=== PATIENT | male | born 1940 | race Caucasian/White ===

== ENCOUNTER → 2016-12-27 | Outpatient (REF) | payer OTHER | LOC: M LABDRAW1 13:40 | PROVIDERS: ATTEND Internal Medicine Endocrinology, Diabetes & Metabolism | DX: E11.65 Type 2 diabetes mellitus with hyperglycemia (principal) ==

== ENCOUNTER 2019-01-28 13:00 | Inpatient (IN) | payer MEDICARE, OTHER ==
[~2019-01-28] VITALS: Ht 177.8 cm; Wt 61.2 kg
[2019-01-28] MEDS ORDERED: SIMV10TA2 PO (13:27)
[2019-01-28] MEDS ORDERED: [UNRECOGNIZED DRUG - OTHER] (13:29)
[2019-01-28] MEDS ORDERED: QUIN1TAB3 PO (13:29)
[2019-01-28] MEDS ORDERED: METF500T13 PO (13:29)
[2019-01-28] MEDS ORDERED: EQL400CA9 PO (13:29)
[2019-01-28] MEDS ORDERED: CHLO125TA PO (13:30)
[2019-01-28] MEDS ORDERED: ASPI81TA85 PO (13:31)
[2019-01-28] MEDS ORDERED: INSULIN (13:31)
[2019-01-28 14:44] LABS: BASO % 0.5 % (0.0-1.0); EOS % 0.6 % (0.0-3.0); HEMATOCRIT 34.8 % (42.0-52.0); HEMOGLOBIN 12.7 g/dl (13.5-17.5); LYMPH # 0.7 10^3/uL (1.5-5.0); LYMPH % 9.8 % (24.0-44.0); MEAN CORPUSCULAR HEMOGLOBIN 32.2 pg (27.0-33.0); MEAN CORPUSCULAR HGB CONC 36.5 g/dl (32.0-36.5); MEAN CORPUSCULAR VOLUME 88.1 fl (80.0-96.0); MONO # 0.7 10^3/uL (0.0-0.8); MONO % 9.8 % (0.0-5.0); NEUTROPHILS # 5.3 10^3/uL (1.5-8.5); PLATELET COUNT, AUTOMATED 299 10^3/uL (150-450); RED BLOOD COUNT 3.95 10^6/uL (4.30-6.10); WHITE BLOOD COUNT 6.7 10^3/uL (4.0-10.0)
[2019-01-28 15:04] LABS: ALBUMIN 3.8 GM/DL (3.2-5.2); ALT/SGPT 26 U/L (12-78); BILIRUBIN,DIRECT 0.2 MG/DL (0.0-0.2); BILIRUBIN,TOTAL 0.7 MG/DL (0.2-1.0); BLOOD UREA NITROGEN 22 MG/DL (7-18); CALCIUM LEVEL 9.1 MG/DL (8.8-10.2); CARBON DIOXIDE LEVEL 30 MEQ/L (21-32); CHLORIDE LEVEL 88 MEQ/L (98-107); CK-MB VALUE MASS 2.4 NG/ML (<3.6); CPK CREATINE PHOSPHOKINASE 168 U/L (39-308); CREATININE FOR GFR 0.96 MG/DL (0.70-1.30); GLOMERULAR FILTRATION RATE > 60.0 (>42); GLUCOSE, FASTING 226 MG/DL (70-100); MB/CK RELATIVE INDEX 1.43 (< OR =4); POTASSIUM SERUM 3.2 MEQ/L (3.5-5.1); SODIUM LEVEL 127 MEQ/L (136-145); TOTAL PROTEIN 7.2 GM/DL (6.4-8.2); TROPONIN I 0.02 NG/ML (< 0.10)
--- NOTE | 2019-01-28 15:12 | REP ---
CT brain without contrast: History: Altered mental status. No comparison study. Findings: Preliminary digital curling machine operator radiograph demonstrates that the patient is edentulous. Bone window settings demonstrate an intact bony calvarium. There is heavy vascular calcification in the distal carotid arteries. Visualized paranasal sinuses are clear. No intraorbital abnormality is seen. No scalp lesion is observed. There is no evidence of intracranial hemorrhage. There is moderate generalized volume loss. There is no evidence of infarct, hemorrhage, mass, or extra-axial fluid collection. Impression: Generalized volume loss. Vascular calcification. Otherwise negative. Electronically Signed by Jose Franco MD 01/28/2019 04:54 P
[2019-01-28] MEDS ORDERED: POTASSIUM CHLORIDE 10 MEQ SR TABLET PO ONE (15:45)
[2019-01-28] MEDS ORDERED: DOXYCYCLINE HYCLATE 100 MG TAB PO ONE (16:30)
[2019-01-28] MEDS ORDERED: BASA100I SC (16:38)
[2019-01-28] MEDS ORDERED: NOVOINJ3 SQ (16:38)
[2019-01-28] MEDS ORDERED: METF-791 PO (16:38)
[2019-01-28] MEDS ORDERED: CHOL100029 PO (16:38)
[2019-01-28] MEDS ORDERED: DEXTROSE 50% 50 ML SYRINGE IV PRN (16:45)
[2019-01-28] MEDS ORDERED: GLUCAGON FOR INJ 1 MG VIAL (J1610) SC PRN (16:45)
[2019-01-28] MEDS ORDERED: GLUCOSE 4 GM CHEW TABLET PO PRN (16:45)
--- NOTE | 2019-01-28 17:14 | HPEPDOC ---
General Date of Admission 01/28/19 Date of Service: Jan 28, 2019 Chief Complaint The patient is a 78-year-old male admitted with a reason for visit of [facility]. History of Present Illness Patient is 78 years old male with past medical history of hypertension, diabetes type 2 presented hospital with history of confusion. Family presented in the room with patient and provided most of the history. According to them, for past 2 months patient has been increasingly forgetful, confused, he has been having problem with short-term memory. Family stated that 2 days ago they removed tick from his right eyelid, another tick was removed from the left eyelid 2 weeks ago. However, family stated that [place], and possible he got few tick bites for past few months. Patient was not compliant to his blood pressure and diabetes medications because of forgetfulness. On the admission blood pressure was elevated with systolic 170 , CT head was negative, CBC unremarkable, patient was found to have low sodium level of 127. Troponin was negative, EKG showed sinus rhythm. Chest x-ray was negative for acute cardiopulmonary diseases. Home Medications Scheduled Aspirin (Aspir 81) 81 Mg Tablet.dr, 81 MG PO DAILY, (Reported) Chlorthalidone (Chlorthalidone) 25 Mg Tablet, 25 MG PO DAILY, (Reported) Insulin Aspart (Novolog Flexpen) 100 Unit/1 Ml Insuln.pen, 1 DOSE SQ ACHS, (Rep orted) PER SLIDING SCALE Insulin Glargine,Hum.rec.anlog (Basaglar Kwikpen U-100) 100 Unit/1 Ml Insuln.pen, 15 UNIT SC QHS, (Reported) Metformin HCl (Metformin HCl ER) 500 Mg Tab.er.24h, 1,000 MG PO BID, (Reported) Quinapril Hcl (Quinapril HCl) 20 Mg Tablet, 20 MG PO DAILY, (Reported) Simvastatin (Simvastatin) 10 Mg Tablet, 10 MG PO QPM, (Reported) Vitamin D (Vitamin D3) 1,000 Unit Tablet, 1,000 UNITS PO DAILY, (Reported) Allergies Coded Allergies: No Known Allergies (Unverified , 01/28/19) Past Medical History Medical History Diabetes type 2 Hypertension Family History I reviewed family history and it's not pertinent Social History * Smoker: Denies, former Smoker Alcohol: Denies Drugs: denies A-FIB/CHADSVASC A-FIB History Current/History of A-Fib/PAF?: No Current PO Anticoag Therapy: No Review of Systems Constitutional: Denies: Chills, Fever Eyes: Denies: Pain, Vision change ENT: Denies: Head Aches, Ear Pain Skin: Denies: Rash, Lesions Pulmonary: Denies: Dyspnea, Cough Cardiovascular: Denies: Chest Pain, Palpitations Gastrointestinal: Denies: Nausea, Vomiting Genitourinary: Denies: Dysuria, Frequency Hematologic: Denies: Bruising, Bleeding Excessively Endocrine: Denies: Polydipsia, Polyphagia Musculoskeletal: Denies: Neck Pain, Back Pain Neurological: Reports: Confusion; Denies: Weakness Psych: Reports: Anxiety Physical Examination General Exam: Positive: Alert, Cooperative Eye Exam: Positive: PERRLA, Conjunctiva & lids normal ENT Exam: Positive: Atraumatic, Mucous membr. moist/pink Neck Exam: Positive: Supple; Negative: JVD Chest Exam: Positive: Clear to auscultation Heart Exam: Positive: Rate Normal Telemetry: Positive: No significant arrhythmia, Sinus Abdomen Exam: Positive: Normal bowel sounds Extremity Exam: Negative: Clubbing, Cyanosis Skin Exam: Positive: Nl turgor and temperature, Breakdown (small subcutaneous hemorrhage on the right eyelid after tick removal) Neuro Exam: Positive: Strength at 5/5 X4 ext, Cranial Nerves 3-12 NL Psych Exam: Positive: Other (patient oriented in place, in time) Vital Signs Vital Signs Date Time Temp Pulse Resp B/P (MAP) Pulse Ox O2 Delivery O2 Flow Rate FiO2 01/28/19 15:15 94 18 100 Room Air 01/28/19 13:43 98.3 01/28/19 13:40 172/78 (109) Laboratory Data Labs 24H Laboratory Tests 2 01/28/19 14:04: Urine Color YELLOW, Urine Appearance CLEAR, Urine pH 6.0, Urine Specific [place] 1.014, Urine Protein NEGATIVE, Urine Glucose (UA) 3+H, Urine Ketones 1+H, Urine Blood NEGATIVE, Urine Nitrite NEGATIVE, Urine Bilirubin NEGATIVE, Urine Urobilinogen 0.2, Urine Leukocyte Esterase NEGATIVE, Urine WBC (Auto) 1, Urine RBC (Auto) 5H, Urine Hyaline Casts (Auto) 0, Urine Bacteria (Auto) NEGATIVE, Urine Squamous Epithelial Cells 0, Urine Mucus (Auto) SMALL, Urine Sperm (Auto) 01/28/19 14:10: Immature Granulocyte % (Auto) 0.3, White Blood Count 6.7, Red Blood Count 3.95L, Hemoglobin 12.7L, Hematocrit 34.8L, Mean Corpuscular Volume 88.1, Mean Corpuscular Hemoglobin 32.2, Mean Corpuscular Hemoglobin Concent 36.5, Red Cell Distribution Width 12.5, Platelet Count 299, Neutrophils (%) (Auto) 79.0H, Lymphocytes (%) (Auto) 9.8L, Monocytes (%) (Auto) 9.8H, Eosinophils (%) (Auto) 0.6, Basophils (%) (Auto) 0.5, Neutrophils # (Auto) 5.3, Lymphocytes # (Auto) 0.7L, Monocytes # (Auto) 0.7, Eosinophils # (Auto) 0.0, Basophils # (Auto) 0.0, Nucleated Red Blood Cells % (auto) 0.0, Anion Gap 9, Glomerular Filtration Rate > 60.0, Calcium Level 9.1, Aspartate Amino Transf (AST/SGOT) 24, Alanine Aminotransferase (ALT/SGPT) 26, Alkaline Phosphatase 87, Total Bilirubin 0.7, Direct Bilirubin 0.2, Ammonia < 10, Total Creatine Kinase 168, Creatine Kinase MB 2.4, Creatine Kinase MB Relative Index 1.43, Troponin I 0.02, Total Protein 7.2, Albumin 3.8, Albumin/Globulin Ratio 1.12, Thyroid Stimulating Hormone (TSH) 0.750 01/28/19 14:11: CBC/BMP Laboratory Tests 01/28/19 14:10 Red Blood Count 3.95 L, Mean Corpuscular Volume 88.1, Mean Corpuscular Hemoglobin 32.2, Mean Corpuscular Hemoglobin Concent 36.5, Red Cell Distribution Width 12.5, Neutrophils (%) (Auto) 79.0 H, Lymphocytes (%) (Auto) 9.8 L, Monocytes (%) (Auto) 9.8 H, Eosinophils (%) (Auto) 0.6, Basophils (%) (Auto) 0.5, Neutrophils # (Auto) 5.3, Lymphocytes # (Auto) 0.7 L, Monocytes # (Auto) 0.7, Eosinophils # (Auto) 0.0, Basophils # (Auto) 0.0 Assessment/Plan Patient is 78 years old male with past medical history of hypertension, diabetes type 2 presented hospital with history of confusion. Family presented in the room with patient and provided most of the history. According to them, for past 2 months patient has been increasingly forgetful, confused, he has been having problem with short-term memory Problems (1) Altered mental status Status: Acute Problem Text: Unclear etiology for now Differential diagnosis includes dementia, hypertensive encephalopathy given noncompliance to his medication, Lyme diseases, previous lacunar stroke Will check Lyme titer. I will start empirically doxycycline Patient took metformin, I will order MRI of the brain tomorrow Will check Doppler ultrasound of the carotids (2) Hyponatremia Status: Acute Problem Text: Unclear etiology for now Will check urine lites, serum osmolarity, urine osmolarity Fluid restriction for now Will check sodium level every 4 hours The goal for correction 6-8 mEq for next 24 hours (3) Diabetes mellitus Problem Text: Diabetes diet, stop metformin Insulin sliding scale Detemir 10 units daily at bedtime (4) Hypertension Problem Text: Continue home antihypertensive medication Plan / VTE VTE Prophylaxis Ordered?: Yes CORINE WHATLEY DO Jan 28, 2019 17:14
[2019-01-28] MEDS: HumaLOG INSULIN (NovoLOG) PER UNIT SC SCH (17:37)
[2019-01-28 18:15] VITALS: BP 170/63
[2019-01-28] MEDS: SIMVASTATIN 10 MG TAB PO SCH (20:18)
[2019-01-28] MEDS: HEPARIN SOD (PORCINE) 5000 UNITS/ML VIAL SC SCH (20:19)
[2019-01-28] MEDS: QUINAPRIL 20 MG TAB PO SCH (20:19)
--- NOTE | 2019-01-28 20:41 | ECGEPIP ---
[facility] - ED Test Date: 2019-01-28 Pat Name: KETURAH SNOW Department: Room: [place] [address] Gender: Male Atmospheric Technician: jose juan : 1940 Requested By: LUKE Vazquez Order Number: [id number] Reading MD: Amado Simmons Measurements Intervals [place] Rate: 86 P: 89 MA: 197 QRS: 48 QRSD: 94 T: 68 QT: 361 QTc: 434 Interpretive Statements SINUS RHYTHM SEPTAL MYOCARDIAL INFARCTION, OF INDETERMINATE AGE NO PRIORS FOR COMPARISON Electronically Signed on 01-28-2019 20:41:33 EDT by Amado Simmons
[2019-01-28 22:00] VITALS: BP 126/64
[2019-01-28] MEDS: LEVEMIR (INSULIN DETEMIR) 1 UNITS/0.01ML SC SCH (23:00)
[2019-01-29 06:00] VITALS: BP 102/64
[2019-01-29 06:03] LABS: HEMATOCRIT 31.5 % (42.0-52.0); HEMOGLOBIN 11.2 g/dl (13.5-17.5); MEAN CORPUSCULAR HEMOGLOBIN 30.9 pg (27.0-33.0); MEAN CORPUSCULAR HGB CONC 35.6 g/dl (32.0-36.5); MEAN CORPUSCULAR VOLUME 86.8 fl (80.0-96.0); PLATELET COUNT, AUTOMATED 279 10^3/uL (150-450); RED BLOOD COUNT 3.63 10^6/uL (4.30-6.10)
[2019-01-29 06:21] LABS: BLOOD UREA NITROGEN 20 MG/DL (7-18); CALCIUM LEVEL 8.2 MG/DL (8.8-10.2); CARBON DIOXIDE LEVEL 31 MEQ/L (21-32); CHLORIDE LEVEL 93 MEQ/L (98-107); GLOMERULAR FILTRATION RATE > 60.0 (>42); GLUCOSE, FASTING 88 MG/DL (70-100); POTASSIUM SERUM 3.5 MEQ/L (3.5-5.1); SODIUM LEVEL 129 MEQ/L (136-145)
[2019-01-29] MEDS: HumaLOG INSULIN (NovoLOG) PER UNIT SC SCH ×3 (07:30→17:50)
[2019-01-29] MEDS ORDERED: POTASSIUM CHLORIDE 10 MEQ SR TABLET PO ONE (08:15)
[2019-01-29] MEDS: DOXYCYCLINE HYCLATE 100 MG TAB PO SCH ×2 (08:42→22:22)
[2019-01-29] MEDS: CHLORTHALIDONE 25 MG TAB PO SCH (08:42)
[2019-01-29] MEDS: ASPIRIN 81 MG ENTERIC TAB PO SCH (08:42)
[2019-01-29] MEDS: HEPARIN SOD (PORCINE) 5000 UNITS/ML VIAL SC SCH ×2 (08:42→22:23)
[2019-01-29] MEDS ORDERED: QUINAPRIL 20 MG TAB PO SCH (09:00)
[2019-01-29 09:01] LABS: ALBUMIN 3.2 GM/DL (3.2-5.2); ALT/SGPT 20 U/L (12-78); BILIRUBIN,DIRECT 0.2 MG/DL (0.0-0.2); BILIRUBIN,TOTAL 0.7 MG/DL (0.2-1.0)
--- NOTE | 2019-01-29 13:38 | REP ---
AP and lateral chest three views: There are two AP and single lateral views: There are no comparisons. The lung vigil are hyperinflated but clear. Cardiac size is normal. The huma and mediastinum are unremarkable. There is thoracic scoliosis convex right. 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 Impression: Hyperinflation, the lung vigil otherwise clear. Scoliosis. Right shoulder osteoarthritis. Electronically Signed by Theodore Vieira MD 01/29/2019 01:27 P
[2019-01-29 14:00] VITALS: BP 134/66
--- NOTE | 2019-01-29 14:33 | IPNPDOC ---
Text Note Date of Service The patient was seen on 01/29/19. NOTE Subjective: Patient mildly confused in the morning, he has a racing thoughts and is difficult for him to focus on one subject, I have frequently redirected him. Patient denies fever, chills, nausea, vomiting, shortness of breath, palpitations, dysuria, diarrhea Objective: General Exam: Positive: Alert, Cooperative Eye Exam: Positive: PERRLA, Conjunctiva & lids normal ENT Exam: Positive: Atraumatic, Mucous membr. moist/pink Neck Exam: Positive: Supple; Negative: JVD Chest Exam: Positive: Clear to auscultation Heart Exam: Positive: Rate Normal Telemetry: Positive: No significant arrhythmia, Sinus Abdomen Exam: Positive: Normal bowel sounds Extremity Exam: Negative: Clubbing, Cyanosis Skin Exam: Positive: Nl turgor and temperature, Breakdown (small subcutaneous hemorrhage on the right eyelid after tick removal) Neuro Exam: Positive: Strength at 5/5 X4 ext, Cranial Nerves 3-12 NL Patient is 78 years old male with past medical history of hypertension, diabetes type 2 presented hospital with confusion. For past 2 months patient has been increasingly forgetful, confused, he has been having problem with short-term memory. Family stated that 2 days ago they removed tick from his right eyelid, another tick was removed from the left eyelid 2 weeks ago. On the admission blood pressure was elevated with systolic 170 , CT head was negative, CBC unremarkable, patient was found to have low sodium level of 127. Troponin was negative, EKG showed sinus rhythm. Chest x-ray was negative for acute cardiopulmonary diseases. (1) Altered mental status Status: Acute Problem Text: Unclear etiology for now Differential diagnosis includes dementia, hypertensive encephalopathy given noncompliance to his medication, Lyme diseases, previous lacunar stroke Lyme titer pending. I started empirically doxycycline MRI of the brain Will check Doppler ultrasound of the carotids (2) Hyponatremia Status: Acute Sodium level continues to be 127. Problem Text: Unclear etiology for now urine lites, serum osmolarity, urine osmolarity pending Fluid restriction for now Will check sodium level every 4 hours The goal for correction 6-8 mEq for next 24 hours (3) Diabetes mellitus Problem Text: Diabetes diet, stop metformin Insulin sliding scale Detemir 10 units daily at bedtime I will check HbA1c (4) Hypertension Blood pressures under control Problem Text: Continue home antihypertensive medication VS,Fishbone, I+O VS, [place], I+O Laboratory Tests 01/28/19 19:33 01/28/19 22:41 01/29/19 02:30 01/29/19 05:36 Red Blood Count 3.63 L, Mean Corpuscular Volume 86.8, Mean Corpuscular Hemoglobin 30.9, Mean Corpuscular Hemoglobin Concent 35.6, Red Cell Distribution Width 12.4 01/29/19 10:44 Vital Signs Date Time Temp Pulse Resp B/P (MAP) Pulse Ox O2 Delivery O2 Flow Rate FiO2 01/29/19 06:00 98.0 84 19 102/64 (77) 97 01/28/19 16:45 Room Air I&O- Last 24 Hours up to 6 AM 01/29/19 06:00 Intake Total 100 ml Output Total 175 ml Balance -75 ml CORINE WHATLEY DO Jan 29, 2019 14:33
--- NOTE | 2019-01-29 17:18 | REP ---
CAROTID ULTRASOUND: Real-time ultrasound evaluation and duplex Doppler interrogation of the extracranial carotid vasculature is performed. There is mild plaquing and narrowing in both carotid bulbs extending into the internal and external carotid arteries. Luminal narrowing is less than 50%. There is no evidence of hemodynamically significant stenosis of either internal carotid artery. Normal flow velocities are seen. The vertebral arteries demonstrate normal direction of flow. RIGHT LEFT Peak systolic velocity ICA 100.8 cm/s 70.9 cm/s End diastolic velocity ICA 20.6 cm/s 17.9 cm/s Peak systolic velocity CCA 123 cm/s 93.7 cm/s Peak systolic velocity ECA 80.5 cm/s 70.5 cm/s ICA/CCA ratio 0.82 0.76 IMPRESSION: Bilateral luminal narrowing of the internal carotid arteries less than 50%. No evidence of hemodynamically significant stenosis. Electronically Signed by Theodore Dalal MD 01/29/2019 05:09 P
[2019-01-29 20:00] VITALS: BP 136/64
[2019-01-29] MEDS: SIMVASTATIN 10 MG TAB PO SCH (22:22)
[2019-01-29] MEDS: LEVEMIR (INSULIN DETEMIR) 1 UNITS/0.01ML SC SCH (22:23)
[2019-01-29] MEDS: QUINAPRIL 20 MG TAB PO SCH (22:24)
[2019-01-30 00:08] LABS: Lyme Disease IgG/IgM Antibodie <0.91 ISR (0.00-0.90); Lyme Disease IgM Ab Quantitati <0.80 index (0.00-0.79)
[2019-01-30 06:00] VITALS: BP 126/64
[2019-01-30 06:23] LABS: POTASSIUM SERUM 3.7 MEQ/L (3.5-5.1)
[2019-01-30] MEDS: HumaLOG INSULIN (NovoLOG) PER UNIT SC SCH ×3 (07:32→17:18)
[2019-01-30 07:47] LABS: HEMATOCRIT 31.2 % (42.0-52.0); HEMOGLOBIN 11.1 g/dl (13.5-17.5); MEAN CORPUSCULAR HEMOGLOBIN 31.7 pg (27.0-33.0); MEAN CORPUSCULAR HGB CONC 35.6 g/dl (32.0-36.5); MEAN CORPUSCULAR VOLUME 89.1 fl (80.0-96.0); PLATELET COUNT, AUTOMATED 264 10^3/uL (150-450); WHITE BLOOD COUNT 3.9 10^3/uL (4.0-10.0)
[2019-01-30 08:02] LABS: BLOOD UREA NITROGEN 23 MG/DL (7-18); CALCIUM LEVEL 8.6 MG/DL (8.8-10.2); CARBON DIOXIDE LEVEL 29 MEQ/L (21-32); CHLORIDE LEVEL 93 MEQ/L (98-107); CREATININE FOR GFR 0.92 MG/DL (0.70-1.30); GLOMERULAR FILTRATION RATE > 60.0 (>42); GLUCOSE, FASTING 213 MG/DL (70-100); SODIUM LEVEL 128 MEQ/L (136-145)
[2019-01-30] MEDS ORDERED: PROHANCE 279.3MG/ML 15ML VIAL (A9576) As Ordered ONE (08:37)
[2019-01-30] MEDS ORDERED: FLUBLOK(EGG FREE)(QUAD)INFLUENZA VACC 0.5ML SYRINGE (90682)18YRS&OLDER IM ONE (09:00)
[2019-01-30] MEDS ORDERED: PREVNAR 13 VACCINE SYRINGE (CPT CODE:90670) IM ONE (09:00)
[2019-01-30] MEDS ORDERED: LEVEMIR (INSULIN DETEMIR) 1 UNITS/0.01ML SC SCH (09:00)
[2019-01-30] MEDS: CHLORTHALIDONE 25 MG TAB PO SCH (10:08)
[2019-01-30] MEDS: ASPIRIN 81 MG ENTERIC TAB PO SCH (10:08)
[2019-01-30] MEDS: HEPARIN SOD (PORCINE) 5000 UNITS/ML VIAL SC SCH ×2 (10:09→21:54)
[2019-01-30] MEDS: DOXYCYCLINE HYCLATE 100 MG TAB PO SCH (10:09)
--- NOTE | 2019-01-30 10:17 | REP ---
MRI BRAIN WITHOUT AND WITH IV CONTRAST: HISTORY: Altered mental status. Progressive confusion. Comparison head CT study January 30, 2019. TECHNIQUE: Axial and sagittal imaging planes are utilized for T1- and T2-weighted scans. Sequences include spin-echo, fast spin echo, FLAIR, and diffusion weighted sequences. Gadolinium enhancement dose is 12 mL of intravenous ProHance. MRI FINDINGS: No bony calvarial lesion is seen. Craniocervical junction and upper cervical cord are normal in appearance. There is no MR evidence of paranasal sinus disease. No intraorbital abnormality is seen. There is generalized volume loss as seen on the CT study. Mild small vessel atherosclerotic changes are seen in the periventricular white matter of the supratentorial brain bilaterally. There is no evidence of intracranial hemorrhage or mass. Diffusion weighted scans show no evidence of restricted diffusion. No infarct or extra-axial fluid collection is seen. Postcontrast MR images show no abnormal intracranial enhancement. IMPRESSION: Generalized volume loss and small vessel changes. No acute intracranial abnormality. Electronically Signed by Jose Franco MD 01/30/2019 10:25 A
--- NOTE | 2019-01-30 12:17 | IPNPDOC ---
Text Note Date of Service The patient was seen on 01/30/19. NOTE Subjective: Patient continues to be mildly confused in the morning, he does not remember recent events. There is a question for confabulation. Patient denies fever, chills, nausea, vomiting, shortness of breath, palpitations, dysuria, diarrhea Objective: General Exam: Positive: Alert, Cooperative Eye Exam: Positive: PERRLA, Conjunctiva & lids normal ENT Exam: Positive: Atraumatic, Mucous membr. moist/pink Neck Exam: Positive: Supple; Negative: JVD Chest Exam: Positive: Clear to auscultation Heart Exam: Positive: Rate Normal Telemetry: Positive: No significant arrhythmia, Sinus Abdomen Exam: Positive: Normal bowel sounds Extremity Exam: Negative: Clubbing, Cyanosis Skin Exam: Positive: Nl turgor and temperature, Breakdown (small subcutaneous hemorrhage on the right eyelid after tick removal) Neuro Exam: Positive: Strength at 5/5 X4 ext, Cranial Nerves 3-12 NL MRI BRAIN WITHOUT AND WITH IV CONTRAST: HISTORY: Altered mental status. Progressive confusion. Comparison head CT study January 30, 2019. TECHNIQUE: Axial and sagittal imaging planes are utilized for T1- and T2-weighted scans. Sequences include spin-echo, fast spin echo, FLAIR, and diffusion weighted sequences. Gadolinium enhancement dose is 12 mL of intravenous ProHance. MRI FINDINGS: No bony calvarial lesion is seen. Craniocervical junction and upper cervical cord are normal in appearance. There is no MR evidence of paranasal sinus disease. No intraorbital abnormality is seen. There is generalized volume loss as seen on the CT study. Mild small vessel atherosclerotic changes are seen in the periventricular white matter of the supratentorial brain bilaterally. There is no evidence of intracranial hemorrhage or mass. Diffusion weighted scans show no evidence of restricted diffusion. No infarct or extra-axial fluid collection is seen. Postcontrast MR images show no abnormal intracranial enhancement. IMPRESSION: Generalized volume loss and small vessel changes. No acute intracranial abnormality. Electronically Signed by Jose Franco MD 01/30/2019 10:25 A DD: Jose Franco MD 01/30/19 0942 DT: MIGUEL 01/30/19 1016 DS: SHREYAS 01/30/19 1025 01/30/19 1025 Patient is 78 years old male with past medical history of hypertension, diabetes type 2 presented hospital with confusion. For past 2 months patient has been increasingly forgetful, confused, he has been having problem with short-term memory. Family stated that 2 days ago they removed tick from his right eyelid, another tick was removed from the left eyelid 2 weeks ago. On the admission blood pressure was elevated with systolic 170 , CT head was negative, CBC unremarkable, patient was found to have low sodium level of 127. Troponin was negative, EKG showed sinus rhythm. Chest x-ray was negative for acute cardiopulmonary diseases. (1) Altered mental status Status: Acute Problem Text: Unclear etiology for now Differential diagnosis included dementia, hypertensive encephalopathy given noncompliance to his medication, Lyme diseases, previous lacunar stroke Lyme titer negative including IgM. I discontinued doxycycline MRI of the brain showed generalized volume loss and small vessel changes. No acute intracranial abnormality. Doppler ultrasound of the carotids showed less than 50% carotid artery stenosis Neurologist consult EEG (2) Hyponatremia Status: Acute Sodium level improved Corrected sodium today is 130 (3) Diabetes mellitus Problem Text: Diabetes diet, stop metformin Insulin sliding scale Detemir 10 units daily at bedtime I added 10 units that in the morning HbA1c 9, indicates poor control diabetes (4) Hypertension Blood pressures under control Problem Text: Continue home antihypertensive medication VS,Fishbone, I+O VS, Fishbone, I+O Laboratory Tests 01/29/19 14:35 01/29/19 18:53 01/29/19 22:24 01/30/19 02:26 01/30/19 05:30 Red Blood Count 3.50 L, Mean Corpuscular Volume 89.1, Mean Corpuscular Hemoglobin 31.7, Mean Corpuscular Hemoglobin Concent 35.6, Red Cell Distribution Width 12.7, Calcium Level 8.6 L Vital Signs Date Time Temp Pulse Resp B/P (MAP) Pulse Ox O2 Delivery O2 Flow Rate FiO2 01/30/19 06:00 98.1 73 18 126/64 (84) 97 01/28/19 16:45 Room Air I&O- Last 24 Hours up to 6 AM 01/30/19 06:00 Intake Total 750 ml Output Total 1200 ml Balance -450 ml CORINE WHATLEY DO Jan 30, 2019 12:17
[2019-01-30] MEDS: LEVEMIR (INSULIN DETEMIR) 1 UNITS/0.01ML SC SCH ×2 (12:35→21:55)
[2019-01-30 14:00] VITALS: BP 130/60
[2019-01-30 21:54] VITALS: BP 128/70
[2019-01-30] MEDS: QUINAPRIL 20 MG TAB PO SCH (21:54)
[2019-01-30] MEDS: SIMVASTATIN 10 MG TAB PO SCH (21:54)
[2019-01-30 22:00] VITALS: BP 162/88
[2019-01-31 06:00] VITALS: BP 122/70
[2019-01-31 06:02] LABS: MEAN CORPUSCULAR HEMOGLOBIN 31.3 pg (27.0-33.0); MEAN CORPUSCULAR HGB CONC 35.5 g/dl (32.0-36.5); MEAN CORPUSCULAR VOLUME 88.3 fl (80.0-96.0); PLATELET COUNT, AUTOMATED 259 10^3/uL (150-450); RED BLOOD COUNT 3.51 10^6/uL (4.30-6.10); WHITE BLOOD COUNT 5.5 10^3/uL (4.0-10.0)
[2019-01-31 06:37] LABS: BLOOD UREA NITROGEN 25 MG/DL (7-18); CALCIUM LEVEL 8.4 MG/DL (8.8-10.2); CARBON DIOXIDE LEVEL 29 MEQ/L (21-32); CHLORIDE LEVEL 93 MEQ/L (98-107); CREATININE FOR GFR 0.82 MG/DL (0.70-1.30); GLOMERULAR FILTRATION RATE > 60.0 (>42); GLUCOSE, FASTING 180 MG/DL (70-100); MAGNESIUM LEVEL 1.9 MG/DL (1.8-2.4); POTASSIUM SERUM 3.6 MEQ/L (3.5-5.1); SODIUM LEVEL 130 MEQ/L (136-145); THYROGLOBULIN ANTIBODY 18.8 U/ML (<60.0); THYROID PEROXIDASE ANTIBODY < 28.0 U/ML (<60.0); VITAMIN B12 LEVEL > 2000 PG/ML (247-911)
[2019-01-31] MEDS: HumaLOG INSULIN (NovoLOG) PER UNIT SC SCH ×2 (07:52→11:45)
[2019-01-31] MEDS: ASPIRIN 81 MG ENTERIC TAB PO SCH (07:53)
[2019-01-31] MEDS: CHLORTHALIDONE 25 MG TAB PO SCH (07:53)
[2019-01-31] MEDS: LEVEMIR (INSULIN DETEMIR) 1 UNITS/0.01ML SC SCH (07:53)
[2019-01-31] MEDS: HEPARIN SOD (PORCINE) 5000 UNITS/ML VIAL SC SCH (07:53)
--- NOTE | 2019-01-31 15:24 | CR ---
DATE OF CONSULTATION: 01/30/2019 REFERRING PHYSICIAN: Dr. Reynaldo Thorne REASON FOR CONSULTATION: Altered mental status. HISTORY OF PRESENT ILLNESS: Moe Horne is a 78-year-old man with history of hypertension, diabetes who presented to [facility] due to confusion. The patient states that he lives alone but his children and grandchildren live nearby. He does his own cooking, shopping and driving. He states that he drove 40 miles on 02/07/2019. He went to [place] but had to come back due to traffic. It was too crowded for him. He drove back. When he got home, he was looking at his notebook and had trouble understanding things that he had written himself. He drove to his daughter's house and handed over his dog to his daughter and told her to call 911, who brought him to [facility] due to confusion. Patient states that he now feels back to normal. He is glad that he called 911 and came to hospital. He states that he has found out from his family and friends that they have been noticing trouble with his memory and confusion for longer than couple of months. They noted trouble with short-term memory and he would be confused. He had noted tick bite 2 weeks ago and a couple of days before he came to hospital. He lives in [facility]. He has not been compliant with his blood pressure or diabetes medications due to his forgetfulness. His blood pressure was noted to be systolic 170 at the time of admission. He denies any headaches, back pain, neck pain, hallucinations, delusions, dysphagia, dysarthria, diplopia, urinary incontinence, falls or loss of consciousness. 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 His Lyme antibody was negative. Carotid ultrasound showed less than 50% bilateral carotid artery stenosis. His serum sodium was noted to be 128 and ranged between 126-129. Creatinine was 0.9. Blood glucose was to 213. Urinalysis was normal. PAST MEDICAL HISTORY: Hypertension. Diabetes. Dyslipidemia. HOME MEDICATIONS: - aspirin 81 mg by mouth daily - chlorthalidone 25 mg by mouth daily - insulin Lantus 15 units at night - metformin 1000 mg by mouth twice a day - quinapril 20 mg by mouth daily - simvastatin 10 mg by mouth daily - vitamin D3 1000 units by mouth daily SOCIAL HISTORY: He is a former smoker. He denies alcohol or illicit drugs. FAMILY HISTORY: Noncontributory. REVIEW OF SYSTEMS: All systems were reviewed and found to be noncontributory except as mentioned in history of present illness. PHYSICAL EXAMINATION: Temperature 97.2, pulse 70, respiratory rate 16, blood pressure 130/60, 100% saturation on room air. Heart: Regular rate and rhythm. Lungs: Clear to auscultation. Abdomen: Soft, nontender, nondistended. No pedal edema. No musculoskeletal abnormalities. No rash. No signs of meningeal irritation. The patient is awake, alert, oriented to name of hospital, day, date, month, year, name of president, city, state. Speech is normal with normal comprehension, expression and repetition. Extraoral muscles are intact. No facial weakness. Tongue and uvula are midline. Visual vigil are full to confrontation. There is no nystagmus. 5/5 strength in all four extremities. Deep tendon flexes 1+ in arms and knees and absent at ankles. He has decreased cold pinprick vibration sensation in his feet. Gait is normal. ASSESSMENT: 1. Mild cognitive impairment. 2. Delirium and transient global amnesia are in differential diagnosis. 3. Mild-moderate cerebral atrophy, small vessel ischemic disease of brain and less than 50% bilateral carotid artery stenosis. PLAN: 1. He should not be driving alone. 2. Check vitamin B12, vitamin B1, TSH, etc. 3. Continue aspirin 81 mg by mouth daily and simvastatin 10 mg by mouth daily. 4. Continue appropriate treatment of his hypertension and diabetes. 5. Follow with our office in 2-4 weeks after hospital discharge.
--- NOTE | 2019-01-31 16:42 | DS.PDOC ---
Discharge Summary General Date of Admission Jan 28, 2019 at 18:45 Date of Discharge 01/31/19 Discharge Summary PROCEDURES PERFORMED DURING STAY: None ADMITTING DIAGNOSES: Altered mental status Hyponatremia Diabetes mellitus Hypertension DISCHARGE DIAGNOSES: Altered mental status Hyponatremia Diabetes mellitus Hypertension COMPLICATIONS/CHIEF COMPLAINT: Altered mental status,Hyponatremia. HISTORY OF PRESENT ILLNESS: Moe Horne is a 78-year-old man with history of hypertension, diabetes who presented to [facility] due to confusion. The patient states that he lives alone but his children and grandchildren live nearby. He does his own cooking, shopping and driving. He states that he drove 40 miles on 02/07/2019. He went to [place] but had to come back due to traffic. It was too crowded for him. He drove back. When he got home, he was looking at his notebook and had trouble understanding things that he had written himself. He drove to his daughter's house and handed over his dog to his daughter and told her to call 911, who brought him to [facility] due to confusion. Patient states that he now feels back to normal. He is glad that he called 911 and came to hospital. He states that he has found out from his family and friends that they have been noticing trouble with his memory and confusion for longer than couple of months. They noted trouble with short-term memory and he would be confused. He had noted tick bite 2 weeks ago and a couple of days before he came to hospital. He lives in [facility]. He has not been compliant with his blood pressure or diabetes medications due to his forgetfulness. His blood pressure was noted to be systolic 170 at the time of admission. He denies any headaches, back pain, neck pain, hallucinations, delusions, dysphagia, dysarthria, diplopia, urinary incontinence, falls or loss of consciousness. 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 His Lyme antibody was negative. Carotid ultrasound showed less than 50% bilateral carotid artery stenosis. His serum sodium was noted to be 128 and ranged between 126-129. Creatinine was 0.9. Blood glucose was to 213. Urinalysis was normal. HOSPITAL COURSE:Dr Anderson neurologist consulted him, he thinks patient had mild cognitive impairment, delirium and transient global amnesia in differential diagnosis and he recommended continue aspirin 81 mg by mouth daily and simvas tatin 10 mg by mouth daily, follow with our office in 2-4 weeks after hospital discharge DISCHARGE MEDICATIONS: Please see below. ALLERGIES: Please see below. PHYSICAL EXAMINATION ON DISCHARGE: VITAL SIGNS: Please see below. Heart: Regular rate and rhythm. Lungs: Clear to auscultation. Abdomen: Soft, nontender, nondistended. No pedal edema. No musculoskeletal abnormalities. No rash. No signs of meningeal irritation. The patient is awake, alert, oriented to name of hospital, day, date, month, year, name of president, city, state. Speech is normal with normal comprehension, expression and repetition. Extraoral muscles are intact. No facial weakness. Tongue and uvula are midline. Visual vigil are full to confrontation. There is no nystagmus. 5/5 strength in all four extremities. Deep tendon flexes 1+ in arms and knees and absent at ankles. He has decreased cold pinprick vibration sensation in his feet. Gait is normal. LABORATORY DATA: Please see below. IMAGING: MRI BRAIN WITHOUT AND WITH IV CONTRAST: HISTORY: Altered mental status. Progressive confusion. Comparison head CT study January 30, 2019. TECHNIQUE: Axial and sagittal imaging planes are utilized for T1- and T2-weighted scans. Sequences include spin-echo, fast spin echo, FLAIR, and diffusion weighted sequences. Gadolinium enhancement dose is 12 mL of intravenous ProHance. MRI FINDINGS: No bony calvarial lesion is seen. Craniocervical junction and upper cervical cord are normal in appearance. There is no MR evidence of paranasal sinus disease. No intraorbital abnormality is seen. There is generalized volume loss as seen on the CT study. Mild small vessel atherosclerotic changes are seen in the periventricular white matter of the supratentorial brain bilaterally. There is no evidence of intracranial hemorrhage or mass. Diffusion weighted scans show no evidence of restricted diffusion. No infarct or extra-axial fluid collection is seen. Postcontrast MR images show no abnormal intracranial enhancement. IMPRESSION: Generalized volume loss and small vessel changes. No acute intracranial abnormality. CAROTID ULTRASOUND: Real-time ultrasound evaluation and duplex Doppler interrogation of the extracranial carotid vasculature is performed. There is mild plaquing and narrowing in both carotid bulbs extending into the internal and external carotid arteries. Luminal narrowing is less than 50%. There is no evidence of hemodynamically significant stenosis of either internal carotid artery. Normal flow velocities are seen. The vertebral arteries demonstrate normal direction of flow. RIGHT LEFT Peak systolic velocity ICA 100.8 cm/s 70.9 cm/s End diastolic velocity ICA 20.6 cm/s 17.9 cm/s Peak systolic velocity CCA 123 cm/s 93.7 cm/s Peak systolic velocity ECA 80.5 cm/s 70.5 cm/s ICA/CCA ratio 0.82 0.76 IMPRESSION: Bilateral luminal narrowing of the internal carotid arteries less than 50%. No evidence of hemodynamically significant stenosis. PROGNOSIS: ACTIVITY: As tolerated DIET: Regular DISCHARGE PLAN: Follow-up with neurologist DISPOSITION: Home, Self-Care. DISCHARGE INSTRUCTIONS: 1. Do not drive until neurologist clearance ITEMS TO FOLLOWUP ON ON OUTPATIENT: See above DISCHARGE CONDITION: Stable. TIME SPENT ON DISCHARGE: Greater than 20 minutes. Vital Signs/I&Os Vital Signs Date Time Temp Pulse Resp B/P (MAP) Pulse Ox O2 Delivery O2 Flow Rate FiO2 01/31/19 06:00 98.4 71 18 122/70 (87) 95 01/28/19 16:45 Room Air I&O- Last 24 Hours up to 6 AM 01/31/19 06:00 Intake Total 1170 ml Output Total 625 ml Balance 545 ml Laboratory Data Labs 24H Laboratory Tests 2 01/31/19 05:47: Nucleated Red Blood Cells % (auto) 0.0, Anion Gap 8, Glomerular Filtration Rate > 60.0, Blood Urea Nitrogen 25H, Creatinine 0.82, Sodium Level 130L, Potassium Level 3.6, Chloride Level 93L, Carbon Dioxide Level 29, Calcium Level 8.4L, Magnesium Level 1.9, Vitamin B12 Level > 2000H, Thyroid Stimulating Hormone (TSH) 1.420, Anti-Thyroglobulin Antibody 18.8, Thyroid Peroxidase Antibodies < 28.0 01/31/19 11:41: Bedside Glucose (Misc Panel) 73L CBC/BMP Laboratory Tests 01/31/19 05:47 Red Blood Count 3.51 L, Mean Corpuscular Volume 88.3, Mean Corpuscular Hemoglobin 31.3, Mean Corpuscular Hemoglobin Concent 35.5, Red Cell Distribution Width 12.5, Calcium Level 8.4 L FSBS Laboratory Tests Test 01/31/19 11:41 Range/Units Bedside Glucose (Misc Panel) 73 83-110 MG/DL Microbiology Microbiology 01/28/19 Blood Culture - Preliminary, Resulted No Growth after 48 hours. All Specime... Discharge Medications Scheduled Aspirin (Aspir 81) 81 Mg Tablet.dr, 81 MG PO DAILY, (Reported) Chlorthalidone (Chlorthalidone) 25 Mg Tablet, 25 MG PO DAILY, (Reported) Insulin Aspart (Novolog Flexpen) 100 Unit/1 Ml Insuln.pen, 1 DOSE SQ ACHS, (Reported) PER SLIDING SCALE Insulin Glargine,Hum.rec.anlog (Basaglar Kwikpen U-100) 100 Unit/1 Ml Insuln.pen, 15 UNIT SC QHS, (Reported) Metformin HCl (Metformin HCl ER) 500 Mg Tab.er.24h, 1,000 MG PO BID, (Reported) Quinapril Hcl (Quinapril HCl) 20 Mg Tablet, 20 MG PO DAILY, (Reported) Simvastatin (Simvastatin) 10 Mg Tablet, 10 MG PO QPM, (Reported) Vitamin D (Vitamin D3) 1,000 Unit Tablet, 1,000 UNITS PO DAILY, (Reported) Allergies Coded Allergies: No Known Allergies (Unverified , 01/28/19) CORINE WHATLEY DO Jan 31, 2019 16:42
--- NOTE | 2019-02-03 09:25 | EEG ---
DATE OF EE01/30/2019 REFERRING PHYSICIAN: Dr. Reynaldo Thorne DIAGNOSIS: Altered mental status. EEG NUMBER: [id number] HISTORY: Patient is a 78-year-old man who was admitted at [facility] due to altered mental status. This EEG was done to rule out epileptic potential and encephalopathy. He is currently taking aspirin, chlorthalidone, simvastatin, quinapril, insulin, etc. TECHNICAL DESCRIPTION: This digital EEG was recorded by 21 scalp, ear and two EKG electrodes and was reviewed in bipolar and referential montages following reformatting in 10-20 international electrode placement system. INTERPRETATION: Patient was noted to be in awake and drowsy states during this EEG. Resting awake background rhythm consisted of well-formed posterior dominant rhythm with anterior/posterior gradient comprising of 9 Hz alpha activity measuring 15-40 microvolts in amplitude, which was symmetric and reactive to eye opening. Attenuation of posterior dominant rhythm was seen during transition into drowsiness. Stage I and II sleep were reviewed and were symmetric bilaterally. Hyperventilation could not be performed. Photic stimulation remained unremarkable. EKG revealed normal sinus rhythm. No focal, lateralizing or epileptiform abnormalities were seen. No relevant clinical activity was noted. CONCLUSION: This EEG in awake, drowsy states, stage I and II sleep is within normal limits.
== END 2019-01-31 13:32 | disposition home or self-care (01) | DRG 948 ==
LOC: M ED 13:00 → EDBD 13:00 → M ED INP 13:01 → OBSVTOIN 18:45 → M MSPAV 19:05
PROVIDERS: ADMIT Internal Medicine; ATTEND Internal Medicine
DX: R41.82 Altered mental status, unspecified (principal); E87.1 Hypo-osmolality and hyponatremia; E11.9 Type 2 diabetes mellitus without complications; I10 Essential (primary) hypertension; Z91.14 Patient's other noncompliance with medication regimen; Z79.899 Other long term (current) drug therapy; Z79.4 Long term (current) use of insulin; Z87.891 Personal history of nicotine dependence; E78.5 Hyperlipidemia, unspecified

== ENCOUNTER 2019-02-03 09:39 | Emergency (ER) | payer MEDICARE ==
[~2019-02-03] VITALS: Ht 177.8 cm; Wt 63.6 kg
[~2019-02-03 09:39] MED LIST: ASPI81TA85 PO; BASA100I SC; CHLO125TA PO; CHOL100029 PO; EQL400CA9 PO; INSULIN; METF-791 PO; METF500T13 PO; NOVOINJ3 SQ; QUIN1TAB3 PO; SIMV10TA2 PO; [UNRECOGNIZED DRUG - OTHER]
[2019-02-03 10:50] LABS: HEMOGLOBIN 12.1 g/dl (13.5-17.5); MEAN CORPUSCULAR HEMOGLOBIN 31.5 pg (27.0-33.0); MEAN CORPUSCULAR HGB CONC 35.6 g/dl (32.0-36.5); MEAN CORPUSCULAR VOLUME 88.5 fl (80.0-96.0); PLATELET COUNT, AUTOMATED 332 10^3/uL (150-450); RED BLOOD COUNT 3.84 10^6/uL (4.30-6.10); WHITE BLOOD COUNT 8.6 10^3/uL (4.0-10.0)
--- NOTE | 2019-02-03 10:52 | REP ---
Acute abdominal series: Three views. History: Abdomen pain. Comparison chest x-ray is from January 28, 2019. Findings: There is an S-shaped thoracic scoliotic curve again noted. There is no evidence of infiltrate or free subdiaphragmatic air. Heart is not enlarged. Lung vigil are clear. EKG electrodes are seen. Supine and erect views of the abdomen demonstrate moderate stool in the rectum with mild rectal distension. There are is moderate stool in the proximal colon. No large or small bowel dilation is seen. The left psoas margin is sharp. The right psoas margin is obscured. No mass or organomegaly is seen. Impression: Moderate stool. No other significant abnormality. Scoliosis. Electronically Signed by Jose Franco MD 02/03/2019 01:50 P
[2019-02-03 11:06] LABS: BLOOD UREA NITROGEN 23 MG/DL (7-18); CALCIUM LEVEL 9.3 MG/DL (8.8-10.2); CARBON DIOXIDE LEVEL 27 MEQ/L (21-32); CHLORIDE LEVEL 90 MEQ/L (98-107); CREATININE FOR GFR 0.89 MG/DL (0.70-1.30); GLOMERULAR FILTRATION RATE > 60.0 (>42); GLUCOSE, FASTING 320 MG/DL (70-100); POTASSIUM SERUM 4.1 MEQ/L (3.5-5.1); SODIUM LEVEL 128 MEQ/L (136-145)
[2019-02-03] MEDS ORDERED: COLA100C5 PO (13:22)
[2019-02-03 13:32] VITALS: BP 139/62
== END 2019-02-03 13:43 | disposition home or self-care (01) ==
LOC: EDSEX 09:39 → M ED 09:39 → EDBD 09:39 → M ED 13:43
DX: R10.9 Unspecified abdominal pain (principal); E11.9 Type 2 diabetes mellitus without complications; I10 Essential (primary) hypertension; F03.90 Unspecified dementia, unspecified severity, without behavioral disturbance, psychotic disturbance, mood disturbance, and anxiety

== ENCOUNTER 2019-02-22 20:39 | Emergency (ER) | payer MEDICARE ==
[~2019-02-22 20:39] MED LIST changes: +COLA100C5 PO
[2019-02-22 23:29] VITALS: BP 145/68
--- NOTE | 2019-02-23 09:32 | REP ---
Clinical: Rule out foreign body. Technique: AP and lateral views of the left foot. Findings: No foreign body identified. Evidence for peripheral vascular disease. Small calcaneal heal spur. Impression: No foreign body identified. Electronically Signed by Jay Gilbert MD 02/23/2019 09:24 A
== END 2019-02-23 01:41 | disposition home or self-care (01) ==
LOC: M ED 20:39
DX: R20.8 Other disturbances of skin sensation (principal); E11.9 Type 2 diabetes mellitus without complications; I10 Essential (primary) hypertension; F03.90 Unspecified dementia, unspecified severity, without behavioral disturbance, psychotic disturbance, mood disturbance, and anxiety; Z79.82 Long term (current) use of aspirin; Z79.4 Long term (current) use of insulin; Z79.899 Other long term (current) drug therapy